=== PATIENT | female | born 1950 | race Caucasian/White ===

== ENCOUNTER → 2017-01-19 | Outpatient (CLI) | payer OTHER, MEDICARE ==
[~2017-01-19] MED LIST: ATARAX25 MG PO; FORTAMET500 MG PO; GLUCOPHAGE1000 MG PO; LISINOPRIL/HCTZ1 TA2 PO; MVI; PRILOSEC 20MG20 MG PO; PRILOTC; VYTORIN; ZESTORETIC 12.51 TA1 PO; ZOCOR 40MG40 MG PO
== END ==
LOC: MC.RAD 09:20
DX: Z12.31 Encounter for screening mammogram for malignant neoplasm of breast (principal)

== ENCOUNTER → 2018-02-03 | Outpatient (CLI) | payer MEDICARE, OTHER | LOC: MC.RAD 10:35 | DX: Z12.31 Encounter for screening mammogram for malignant neoplasm of breast (principal) ==

== ENCOUNTER → 2019-02-07 | Outpatient (CLI) | payer MEDICARE | LOC: MC.RAD 13:15 | DX: Z12.31 Encounter for screening mammogram for malignant neoplasm of breast (principal) ==

== ENCOUNTER → 2019-02-09 | Outpatient (CLI) | payer MEDICARE | LOC: COL.RAD 11:16 | DX: E27.8 Other specified disorders of adrenal gland (principal); Z90.49 Acquired absence of other specified parts of digestive tract; Z90.710 Acquired absence of both cervix and uterus | CPT/HCPCS: Q9967 ==

== ENCOUNTER → 2020-02-11 | Outpatient (CLI) | payer MEDICARE | LOC: MC.RAD 11:00 | DX: Z12.31 Encounter for screening mammogram for malignant neoplasm of breast (principal); Z23 Encounter for immunization ==

== ENCOUNTER → 2021-02-11 | Outpatient (CLI) | payer MEDICARE | LOC: MC.RAD 11:00 | DX: Z12.31 Encounter for screening mammogram for malignant neoplasm of breast (principal) ==

== ENCOUNTER → 2021-08-31 | Outpatient (CLI) | payer MEDICARE | LOC: COL.RAD 08:06 | DX: R10.12 Left upper quadrant pain (principal); R68.81 Early satiety | CPT/HCPCS: Q9967 ==

== ENCOUNTER → 2021-11-26 | Outpatient (CLI) | payer MEDICARE | LOC: DIA.ED 08:10 | DX: E11.65 Type 2 diabetes mellitus with hyperglycemia (principal); Z79.4 Long term (current) use of insulin; I10 Essential (primary) hypertension | CPT/HCPCS: G0108 ==

== ENCOUNTER → 2021-12-07 | Outpatient (CLI) | payer MEDICARE | LOC: DIA.ED 10:04 | DX: E11.65 Type 2 diabetes mellitus with hyperglycemia (principal); Z79.4 Long term (current) use of insulin; I10 Essential (primary) hypertension ==

== ENCOUNTER → 2022-05-18 | Outpatient (CLI) | payer MEDICARE | LOC: DIA.ED 07:57 | DX: E11.65 Type 2 diabetes mellitus with hyperglycemia (principal); Z79.4 Long term (current) use of insulin; I10 Essential (primary) hypertension; E03.9 Hypothyroidism, unspecified | CPT/HCPCS: G0108 ==

== ENCOUNTER → 2023-02-16 | Outpatient (CLI) | payer MEDICARE | LOC: CANSCHCLI → MC.RAD 10:34 | DX: Z12.31 Encounter for screening mammogram for malignant neoplasm of breast (principal) ==